=== PATIENT | female | born 1960 ===

== ENCOUNTER 2018-03-27 12:37 | Outpatient (CLI) | payer OTHER ==
--- NOTE | 2018-03-27 16:42 | Diagnostic Imaging Report ---
Indication: Abnormal renal function tests Technique: Grayscale and duplex images of the kidneys, retroperitoneum, and bladder were obtained. Comparison: none Findings: Right kidney measures 11.2 cm in length. Left kidney measures 11.2 cm in length. Both kidneys demonstrate normal echogenicity. There is prominent extrarenal pelvis on the right equivocal mild fullness of the right renal collecting system. Hypoechoic area in the right lower pole most likely represents a parapelvic cysts, although could conceivably represent focal hydronephrosis.. Echogenic foci are seen in the renal sinuses bilaterally. The bladder is unremarkable. There is a left lower pole small renal cyst. Normal inferior vena cava. Impression: Mild fullness the right renal flexion system, but no winsome hydronephrosis Probable left lower pole renal parapelvic cyst, although this conceivably could represent focal hydronephrosis of the lower pole collecting system Small left renal cyst Bilateral echogenic foci, small parenchymal or collecting system calcifications versus artifact.
== END 2018-03-27 14:37 | disposition home or self-care (01) ==
LOC: RAD 12:37
DX: N18.9 Chronic kidney disease, unspecified (principal); N20.0 Calculus of kidney
CPT/HCPCS: 76770